=== PATIENT | female | born 1955 | race Caucasian/White ===

== ENCOUNTER 2019-01-12 03:24 | Inpatient (IN) | payer MEDICARE, BC ==
[~2019-01-12] VITALS: Ht 165.1 cm; Wt 80.0 kg
[~2019-01-12 03:24] MED LIST: ALBU18HF INHALATION; ALEN70TA5 PO; BISA10SU55 RC; FAMO20TA18 PO; FOLI-49 PO; GABA100C14 PO; HYDR12.58 PO; LORA10TA3 PO; MAGN400O19 PO; MEMA10TA PO; METO-429 PO; MINE133E23 RC; SYMB80120 INHALATION; TRAZ150T65 PO
[2019-01-12] MEDS ORDERED: SOD CHLORIDE 0.9% 500 ML IV STA (03:30)
[2019-01-12 03:35] VITALS: Ht 165.1 cm; Wt 80.0 kg
[2019-01-12] MEDS ORDERED: SODIUM CHLORIDE 0.9% 1L BAG IV* STA (03:48)
[2019-01-12] MEDS ORDERED: CEFEPIME 2GM/50 ML (PMX) 50 ML IVPB STA (03:48)
[2019-01-12] MEDS ORDERED: VANCOMYCIN 1 GM (PMX) 250 ML IVPB ONE (04:00)
--- NOTE | 2019-01-12 05:42 | ERD ---
ER Documentation Chief Complaint Chief Complaint bib ra from [facility] for sob, more altered than usual HPI Is a 64-year-old brought in from [facility] for shortness of breath and being more altered than normal. Patient is demented at baseline and cannot provide any relevant history. History is per EMS when she long-term transfer sheet. Patient is cooperative upon arrival to the ER but cannot provide any relevant history. ROS All systems reviewed and are negative except as per history of present illness. Medications Home Meds Reported Medications Albuterol Sulfate* (Ventolin HFA*) 18 Gm Hfa.aer.ad, 2 PUFF INHALATION Q4H, #1 INHALER 01/12/19 Trazodone Hcl* (Trazodone Hcl*) 150 Mg Tablet, 150 MG PO QHS, #30 TAB 01/12/19 Budesonide-Formoterol Fumarate* (Symbicort*) 80-4.5 Inha, 2 PUFFS INHALATION BID, #1 EACH 01/12/19 Metoprolol Tartrate* (Lopressor*) 50 Mg Tab, 50 MG PO BID, #60 TAB 01/12/19 Memantine* (Namenda*) 10 Mg Tablet, 10 MG PO DAILY, #30 TAB 01/12/19 Loratadine* (Loratadine*) 10 Mg Tablet, 10 MG PO DAILY, #30 TAB 01/12/19 Hydrochlorothiazide* (Hydrochlorothiazide*) 12.5 Mg Tablet, 12.5 MG PO DAILY, #30 TAB 01/12/19 Gabapentin* (Gabapentin*) 100 Mg Capsule, 100 MG PO TID, #90 CAP 01/12/19 Folic Acid* (Folic Acid*) 1 Mg Tablet, 1 MG PO DAILY, TAB 01/12/19 Famotidine* (Famotidine*) 20 Mg Tablet, 20 MG PO QAM for GERD, #30 TAB 01/12/19 Mineral Oil (Fleet Mineral Oil Enema) 133 Ml Enema, 133 ML RC, ENEMA 01/12/19 Bisacodyl (Dulcolax) 10 Mg Supp.rect, 10 MG RC PRN for CONSTIPATION, SUPP.RECT 01/12/19 Magnesium Hydroxide* (Milk Of Magnesia*) 400 Mg/5 Ml Oral.susp, 30 ML PO DAILY PRN for CONSTIPATION, ML 01/12/19 Alendronate Sodium* (Fosamax*) 70 Mg Tablet, 70 MG PO Q7D for QSATDAY, #4 TAB 01/12/19 Allergies Allergies: Coded Allergies: No Known Allergy (Unverified , 01/12/19) PMhx/Soc History of Surgery: No Anesthesia Reaction: No Hx Neurological Disorder: Yes (idiopathic neuropathy,restless leg syndrome) Hx Respiratory Disorders: Yes (COPD) Hx Cardiac Disorders: Yes (hypo-osmolality,hyponatremia,hypokalemia) Hx Psychiatric Problems: Yes (Alzheimer's,major depressive disorder) Hx Miscellaneous Medical Probl: Yes (GERD,age-related osteoporosis,lack of coordination,muscle weakness,anemia) Smoking Status: Unknown if ever smoked Physical Exam Vitals Vital Signs Date Temp Pulse Resp B/P (MAP) Pulse Ox O2 O2 Flow FiO2 Time Delivery Rate 01/12/19 95 26 155/71 99 Nasal 2.0 05:00 (99) Cannula 01/12/19 88 21 133/66 96 Nasal 2.0 04:30 (88) Cannula 01/12/19 Nasal 2 03:49 Cannula 01/12/19 98.7 92 26 141/69 88 03:35 (93) Physical Exam Const: No acute distress Head: Atraumatic Eyes: Normal Conjunctiva ENT: Normal External Ears, Nose and Mouth. Neck: Full range of motion. No meningismus. Resp: Clear to auscultation bilaterally Cardio: Regular rate and rhythm, no murmurs Abd: Soft, non tender, non distended. Normal bowel sounds Skin: No petechiae or rashes Back: No midline or flank tenderness Ext: No cyanosis, or edema Neur: Awake and alert Psych: Normal Mood and Affect Result Diagram: 01/12/19 0353 01/12/19 0353 Results 24 hrs Laboratory Tests Test 01/12/19 03:48 01/12/19 03:53 01/12/19 04:10 POC Venous Lactate 2.6 mmol/L White Blood Count 7.0 10^3/ul Red Blood Count 3.75 10^6/ul Hemoglobin 11.9 g/dl Hematocrit 36.1 % Mean Corpuscular Volume 96.3 fl Mean Corpuscular Hemoglobin 31.7 pg Mean Corpuscular 33.0 g/dl Hemoglobin Concent Red Cell Distribution Width 11.9 % Platelet Count 290 10^3/UL Mean Platelet Volume 9.7 fl Immature Granulocytes % 1.100 % Neutrophils % 73.9 % Lymphocytes % 14.5 % Monocytes % 9.0 % Eosinophils % 1.1 % Basophils % 0.4 % Nucleated Red Blood Cells % 0.0 /100WBC Immature Granulocytes # 0.080 10^3/ul Neutrophils # 5.2 10^3/ul Lymphocytes # 1.0 10^3/ul Monocytes # 0.6 10^3/ul Eosinophils # 0.1 10^3/ul Basophils # 0.0 10^3/ul Nucleated Red Blood Cells # 0.0 10^3/ul Prothrombin Time 12.2 Sec Prothrombin Time Ratio 1.0 INR International 0.89 Normalized Ratio Activated Partial Thromboplast 26.4 Sec Time Sodium Level 131 mmol/L Potassium Level 3.5 mmol/L Chloride Level 89 mmol/L Carbon Dioxide Level 37 mmol/L Anion Gap 5 Blood Urea Nitrogen 16 mg/dl Creatinine 0.61 mg/dl Est Glomerular Filtrat > 60 mL/min Rate mL/min Glucose Level 154 mg/dl Calcium Level 8.5 mg/dl Total Bilirubin 0.3 mg/dl Direct Bilirubin 0.00 mg/dl Indirect Bilirubin 0.3 mg/dl Aspartate Amino 44 IU/L Transf (AST/SGOT) Alanine 33 IU/L Aminotransferase (ALT/SGPT) Alkaline Phosphatase 76 IU/L Troponin I < 0.012 ng/ml Total Protein 7.3 g/dl Albumin 3.7 g/dl Globulin 3.60 g/dl Albumin/Globulin Ratio 1.02 Salicylates Level < 1.0 mg/dl Acetaminophen Level < 10.0 ug/ml Ethyl Alcohol Level < 10.0 mg/dl Urine Color YELLOW Urine Clarity CLEAR Urine pH 6.0 Urine Specific [place] 1.015 Urine Ketones TRACE mg/dL Urine Nitrite NEGATIVE mg/dL Urine Bilirubin NEGATIVE mg/dL Urine Urobilinogen NEGATIVE mg/dL Urine Leukocyte Esterase NEGATIVE Sanju/ul Urine Hemoglobin NEGATIVE mg/dL Urine Glucose NEGATIVE mg/dL Urine Total Protein NEGATIVE mg/dl Urine Opiates Screen Negative Urine Barbiturates Negative Urine Amphetamines Screen Negative Urine Benzodiazepines Screen Negative Urine Cocaine Screen Negative Urine Cannabinoids Negative Current Medications Medications Dose Sig/Katie Start Time Status Last (Trade) Ordered Route PRN Stop Time Admin Dose Reason Admin Sodium 500 ml @ Q1H STAT 01/12/19 DC 01/12/19 Chloride 500 mls/hr IV 03:30 03:30 01/12/19 04:29 Sodium 2,400 ml BOLUS OVER 2 01/12/19 DC 01/12/19 Chloride HOURS STAT 03:48 04:13 (NS) IV* 01/12/19 03:52 Cefepime HCl 50 ml @ ONCE STAT 01/12/19 DC 01/12/19 100 mls/hr IVPB 03:48 04:13 01/12/19 04:17 Vancomycin 250 ml @ ONCE ONCE 01/12/19 01/12/19 HCl 125 mls/hr IVPB 04:00 04:39 01/12/19 05:59 Ondansetron 4 mg ER BRIDGE 01/12/19 HCl (Zofran PRN IV 06:00 01/13/19 Inj) NAUSEA/VOMITI 05:59 NG 650 mg ER BRIDGE 01/12/19 Acetaminophen PRN PO 06:00 01/13/19 (Tylenol .MILD PAIN 05:59 Tab) 1-3 OR TEMP Procedures/MDM EKG: Rate/Rhythm: [Normal Sinus Rhythm] QRS, ST, T-waves: [No changes consistent w/ acute ischemia] Impression: [No evidence of ischemia or arrhythmia] Chest X-ray 1V Interpreted by me: Soft Tissue: No acute abnormalities Bones: No acute abnormalities Mediastinum/Cardiac Silhouette/Lungs: [No acute abnormalities] Medical decision makin-year-old female comes in with shortness of breath and more altered than normal. She has no evidence of infection, however lactic acid is 2.6. I doubt sepsis, this is likely secondary to chronic respiratory acidosis. Patient has been started on antibiotics for coverage and has been given 30/kg fluid bolus, however again I doubt sepsis. Patient will be admitted for altered mental status and possible sepsis to be ruled out along with chronic respiratory failure to the hospitalist. Departure Diagnosis: Primary Impression: Altered level of consciousness Condition: Serious TOBY GONZALES Jan 12, 2019 05:42
[2019-01-12] MEDS ORDERED: ACETAMINOPHEN 325 MG TAB PO PRN (06:00)
[2019-01-12] MEDS ORDERED: ONDANSETRON 4 MG INJ IV PRN ×2 (06:00→07:00)
[2019-01-12] MEDS ORDERED: ACETAMINOPHEN 650 MG SUPP PR PRN (07:00)
[2019-01-12] MEDS ORDERED: NACL 0.9% 3 ML SYG IV SCH (07:00)
--- NOTE | 2019-01-12 08:07 | HP ---
Date/Time of Note Date/Time of Note DATE: 01/12/19 TIME: 07:59 Assessment/Plan VTE Prophylaxis SCD applied (from Nsg): Yes Pharmacological prophylaxis: heparin Lines/Catheters IV Catheter Type (from Nrsg): Saline Lock Assessment/Plan Assessment/Plan 1. Acute on chronic encephalopathy -Unknown baseline. She is oriented to location and year. Does not appear to be agitated -Head CT negative for acute findings -Obtain MRI of the brain -Infectious work-up -Given history of COPD and also hypoxic presentation, obtain ABG to evaluate for possible hypercapnia as a cause of worsening mentation 2. Hypoxia, likely secondary to COPD exacerbation -Supplemental oxygen, bronchodilators and steroid -Check ABG 3. Alzheimer's dementia: Supportive care 4. Hyponatremia: -Check osmolality, urine sodium Result Diagram: 01/12/19 0353 01/12/19 0353 Results 24hrs Laboratory Tests Test 01/12/19 03:48 01/12/19 03:53 01/12/19 04:10 01/12/19 05:16 POC Venous Lactate 2.6 *H White Blood Count 7.0 Red Blood Count 3.75 L Hemoglobin 11.9 L Hematocrit 36.1 L Mean Corpuscular 96.3 Volume Mean Corpuscular 31.7 Hemoglobin Mean Corpuscular 33.0 Hemoglobin Concent Red Cell 11.9 Distribution Width Platelet Count 290 Mean Platelet Volume 9.7 Immature 1.100 H Granulocytes % Neutrophils % 73.9 Lymphocytes % 14.5 L Monocytes % 9.0 Eosinophils % 1.1 Basophils % 0.4 Nucleated Red Blood 0.0 Cells % Immature 0.080 H Granulocytes # Neutrophils # 5.2 Lymphocytes # 1.0 Monocytes # 0.6 Eosinophils # 0.1 Basophils # 0.0 Nucleated Red Blood 0.0 Cells # Prothrombin Time 12.2 Prothrombin Time 1.0 Ratio INR International 0.89 Normalized Ratio Activated 26.4 Partial Thromboplast Time Sodium Level 131 L Potassium Level 3.5 Chloride Level 89 L Carbon Dioxide Level 37 H Anion Gap 5 Blood Urea Nitrogen 16 Creatinine 0.61 Est Glomerular > 60 Filtrat Rate mL/min Glucose Level 154 Calcium Level 8.5 Total Bilirubin 0.3 Direct Bilirubin 0.00 Indirect Bilirubin 0.3 Aspartate Amino 44 Transf (AST/SGOT) Alanine 33 Aminotransferase (AL T/SGPT) Alkaline Phosphatase 76 Troponin I < 0.012 Total Protein 7.3 Albumin 3.7 Globulin 3.60 H Albumin/Globulin 1.02 Ratio Salicylates Level < 1.0 L Acetaminophen Level < 10.0 L Ethyl Alcohol Level < 10.0 H Urine Color YELLOW Urine Clarity CLEAR Urine pH 6.0 Urine Specific 1.015 [place] Urine Ketones TRACE A Urine Nitrite NEGATIVE Urine Bilirubin NEGATIVE Urine Urobilinogen NEGATIVE Urine Leukocyte NEGATIVE Esterase Urine Hemoglobin NEGATIVE Urine Glucose NEGATIVE Urine Total Protein NEGATIVE Urine Opiates Screen Negative Urine Barbiturates Negative Urine Amphetamines Negative Screen Urine Negative Benzodiazepines Screen Urine Cocaine Screen Negative Urine Cannabinoids Negative Lactic Acid Level 1.4 HPI/ROS Admit Date/Time Admit Date/Time Hx of Present Illness Patient is a 63-year-old female with a history of COPD, Alzheimer's disease, dementia, depression, hyponatremia, idiopathic neuropathy and restless leg syndrome who was brought to the ER for altered mentation. Patient does have a history of dementia and seems like this is acute on chronic. Patient is oriented to location and year. She did not know why she was brought to the hospital however. She said that she usually uses a walker to ambulate. Currently, she does not really have any complain except back pain due to lying on her back for long time. When presented to the ER, she was hypoxic with oxygen saturation of 88%. Head CT without acute findings. Sodium 131, initial lactic acid 2.6. Chest x-ray and UA nondiagnostic. PMH/Family/Social Past Medical History Past Surgical Hx: other (see hpi) Family History Significant Family History: no pertinent family hx Social History Alcohol Use: other Smoking Status: Unknown if ever smoked Drug Use: other Exam Exam Constitutional: no acute distress Head: normocephalic, atraumatic Eyes: EOMI, PERRL Respiratory: clear to auscultation, normal air movement Cardiovascular: no skipped beat Gastrointestinal: soft, non-tender Extremities: palpable pulse Medications Current Medications Ondansetron HCl (Zofran Inj) 4 mg ER BRIDGE PRN IV NAUSEA/VOMITING; Start 01/12/19 at 06:00; Stop 01/13/19 at 05:59 Acetaminophen (Tylenol Tab) 650 mg ER BRIDGE PRN PO .MILD PAIN 1-3 OR TEMP; Start 01/12/19 at 06:00; Stop 01/13/19 at 05:59 Dextrose/Sodium Chloride 1,000 ml @ 100 mls/hr Q10H IV ; Start 01/12/19 at 06:58 IV Flush (NS 3 ml) 3 ml PER PROTOCOL IV ; Start 01/12/19 at 07:00 Ondansetron HCl (Zofran Inj) 4 mg Q6H PRN IV NAUSEA/VOMITING; Start 01/12/19 at 07:00 Acetaminophen (Tylenol Supp) [address] .PAIN 1-3 OR TEMP; Start 01/12/19 at 07:00 Famotidine (Pepcid Iv) 20 mg Q12 IV ; Start 01/12/19 at 09:00 Heparin Sodium (Porcine) (Heparin (5000 Units/1ml)) 5,000 unit Q12 SC ; Start 01/12/19 at 09:00 Albuterol/ Ipratropium (Duoneb) 3 ml Q2H RESP THERAPY PRN HHN SHORTNESS OF BREATH; Start 01/12/19 at 07:00 Coded Allergies: No Known Allergy (Unverified , 01/12/19) Social History Smoking Status: Unknown if ever smoked Exam/Review of Systems Vital Signs Vitals Vital Signs Date Temp Pulse Resp B/P (MAP) Pulse Ox O2 O2 Flow FiO2 Time Delivery Rate 01/12/19 98.3 72 14 133/62 99 Nasal 2.0 07:40 (85) Cannula Intake and Output 01/11/19 01/11/19 01/12/19 1515:00 23:00 07:00 IntakeIntake Total 100 ml BalanceBalance 100 ml TOBY SHAFFER MD Jan 12, 2019 08:07
[2019-01-12] MEDS: DEXTROSE 5%-0.45% NACL 1,000 ML IV SCH ×2 (09:33→16:58)
[2019-01-12] MEDS: FAMOTIDINE 20 MG INJ IV SCH ×2 (09:33→21:06)
[2019-01-12] MEDS: HEPARIN 5,000 UNIT/1 ML VIAL SC SCH ×2 (09:40→21:08)
[2019-01-12 11:16] VITALS: BP 155/72; PULSE 91; RESP 19
[2019-01-12 11:29] VITALS: BP 162/76; PULSE 90; RESP 19
--- NOTE | 2019-01-12 13:13 | PN ---
Date/Time of Note Date/Time of Note DATE: 01/12/19 TIME: 13:02 Assessment/Plan VTE Prophylaxis Pharmacological prophylaxis: heparin Lines/Catheters IV Catheter Type (from Nrsg): Peripheral IV Assessment/Plan Assessment/Plan 1. COPD exacerbation, neb, rocephin, soluMedrol 2. Respiratory failure, O2 3. Acute on chronic encephalopathy, COPD related 4. Alzheimer's dementia: Supportive care 5. Hyponatremia, dehydration, IVF 6. HTN, norvasc 7. Tobacco use, 4-5 cig per day, advise to quit 8. DVT prophylaxis: heparin Result Diagram: 01/12/19 0353 01/12/19 0353 Results 24hrs Laboratory Tests Test 01/12/19 03:48 01/12/19 03:53 01/12/19 04:10 01/12/19 05:16 POC Venous 2.6 *H Lactate White Blood Count 7.0 Red Blood Count 3.75 L Hemoglobin 11.9 L Hematocrit 36.1 L Mean Corpuscular 96.3 Volume Mean Corpuscular 31.7 Hemoglobin Mean Corpuscular 33.0 Hemoglobin Concen t Red Cell 11.9 Distribution Width Platelet Count 290 Mean Platelet 9.7 Volume Immature 1.100 H Granulocytes % Neutrophils % 73.9 Lymphocytes % 14.5 L Monocytes % 9.0 Eosinophils % 1.1 Basophils % 0.4 Nucleated Red 0.0 Blood Cells % Immature 0.080 H Granulocytes # Neutrophils # 5.2 Lymphocytes # 1.0 Monocytes # 0.6 Eosinophils # 0.1 Basophils # 0.0 Nucleated Red 0.0 Blood Cells # Prothrombin Time 12.2 Prothrombin Time 1.0 Ratio INR International 0.89 Normalized Ratio Activated 26.4 Partial Thrombopl ast Time Sodium Level 131 L Potassium Level 3.5 Chloride Level 89 L Carbon Dioxide 37 H Level Anion Gap 5 Blood Urea 16 Nitrogen Creatinine 0.61 Est Glomerular > 60 Filtrat Rate mL/min Glucose Level 154 Calcium Level 8.5 Total Bilirubin 0.3 Direct Bilirubin 0.00 Indirect 0.3 Bilirubin Aspartate Amino 44 Transf (AST/SGOT) Alanine 33 Aminotransferase (ALT/SGPT) Alkaline 76 Phosphatase Troponin I < 0.012 Total Protein 7.3 Albumin 3.7 Globulin 3.60 H Albumin/Globulin 1.02 Ratio Salicylates Level < 1.0 L Acetaminophen < 10.0 L Level Ethyl Alcohol < 10.0 H Level Urine Color YELLOW Urine Clarity CLEAR Urine pH 6.0 Urine Specific 1.015 [place] Urine Ketones TRACE A Urine Nitrite NEGATIVE Urine Bilirubin NEGATIVE Urine NEGATIVE Urobilinogen Urine Leukocyte NEGATIVE Esterase Urine Hemoglobin NEGATIVE Urine Random 121 H Sodium Urine Glucose NEGATIVE Urine Total NEGATIVE Protein Urine Opiates Negative Screen Urine Negative Barbiturates Urine Negative Amphetamines Screen Urine Negative Benzodiazepines Screen Urine Cocaine Negative Screen Urine Negative Cannabinoids Lactic Acid Level 1.4 Test 01/12/19 07:27 01/12/19 08:54 Lactic Acid Level 1.3 Blood Gas Blood arterial Specimen Source Arterial Blood 01/12/2019 9:10:2 Date Drawn 5 AM Arterial Blood pH 7.417 (Temp corrected) Arterial Blood 49.5 H pCO2 (Temp correct) Arterial Blood 74.4 L pO2 (Temp corrected) Arterial Blood 31.2 H HCO3 Arterial Blood 5.6 H Base Excess Arterial Blood 94.4 L Oxygen Saturation Mario Test ACCEPTAB Arterial Blood Right Radial Gas Puncture Site Arterial 0.1 Blood Carboxyhemo globin Arterial Blood 0.2 Methemoglobin Blood Gas A-a O2 59.6 H Differential Oxyhemoglobin 94.1 Percent Blood Gas 37.0 Temperature Blood Gas NASAL CANNULA Modality FiO2 27.0 Blood Gas TM Notified Whom Blood Gas 01/12/2019 9:24:0 Notified Time 5 AM Subjective 24 Hr Interval Summary Free Text/Dictation alert, answering questions moderate respiratory distress Exam/Review of Systems Exam Vitals Vital Signs Date Temp Pulse Resp B/P (MAP) Pulse Ox O2 O2 Flow FiO2 Time Delivery Rate 01/12/19 98.1 90 19 162/76 99 11:29 (104) 01/12/19 Nasal 2.0 09:15 Cannula Intake and Output 01/11/19 01/11/19 01/12/19 1515:00 23:00 07:00 IntakeIntake Total 100 ml BalanceBalance 100 ml Constitutional: alert, oriented, well developed Head: normocephalic, atraumatic Eyes: nl conjunctiva, EOMI, nl lids, PERRL ENMT: nl external ears & nose, nl lips & teeth, nl nasal mucosa & septum Neck: supple, non-tender Respiratory: diminished breath sounds Cardiovascular: regular rate and rhythm, nl pulses; No bruits, No diastolic murmur, No edema, No gallop, No irregular rhythm, No jugular venous distention (JVD), No murmurs/extra sounds, No rub, No systolic murmur, No S3, No S4, No other Gastrointestinal: soft, nl liver, spleen, non-tender Musculoskeletal: nl extremities to inspection Extremities: normal pulses; No calf tenderness, No cyanosis, No clubbing, No edema, No pitting pedal edema, No palpable cord, No tenderness, No other 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, nl mental status, nl speech Results Results 24hrs Laboratory Tests Test 01/12/19 03:48 01/12/19 03:53 01/12/19 04:10 01/12/19 05:16 POC Venous 2.6 *H Lactate White Blood Count 7.0 Red Blood Count 3.75 L Hemoglobin 11.9 L Hematocrit 36.1 L Mean Corpuscular 96.3 Volume Mean Corpuscular 31.7 Hemoglobin Mean Corpuscular 33.0 Hemoglobin Concen t Red Cell 11.9 Distribution Width Platelet Count 290 Mean Platelet 9.7 Volume Immature 1.100 H Granulocytes % Neutrophils % 73.9 Lymphocytes % 14.5 L Monocytes % 9.0 Eosinophils % 1.1 Basophils % 0.4 Nucleated Red 0.0 Blood Cells % Immature 0.080 H Granulocytes # Neutrophils # 5.2 Lymphocytes # 1.0 Monocytes # 0.6 Eosinophils # 0.1 Basophils # 0.0 Nucleated Red 0.0 Blood Cells # Prothrombin Time 12.2 Prothrombin Time 1.0 Ratio INR International 0.89 Normalized Ratio Activated 26.4 Partial Thrombopl ast Time Sodium Level 131 L Potassium Level 3.5 Chloride Level 89 L Carbon Dioxide 37 H Level Anion Gap 5 Blood Urea 16 Nitrogen Creatinine 0.61 Est Glomerular > 60 Filtrat Rate mL/min Glucose Level 154 Calcium Level 8.5 Total Bilirubin 0.3 Direct Bilirubin 0.00 Indirect 0.3 Bilirubin Aspartate Amino 44 Transf (AST/SGOT) Alanine 33 Aminotransferase (ALT/SGPT) Alkaline 76 Phosphatase Troponin I < 0.012 Total Protein 7.3 Albumin 3.7 Globulin 3.60 H Albumin/Globulin 1.02 Ratio Salicylates Level < 1.0 L Acetaminophen < 10.0 L Level Ethyl Alcohol < 10.0 H Level Urine Color YELLOW Urine Clarity CLEAR Urine pH 6.0 Urine Specific 1.015 [place] Urine Ketones TRACE A Urine Nitrite NEGATIVE Urine Bilirubin NEGATIVE Urine NEGATIVE Urobilinogen Urine Leukocyte NEGATIVE Esterase Urine Hemoglobin NEGATIVE Urine Random 121 H Sodium Urine Glucose NEGATIVE Urine Total NEGATIVE Protein Urine Opiates Negative Screen Urine Negative Barbiturates Urine Negative Amphetamines Screen Urine Negative Benzodiazepines Screen Urine Cocaine Negative Screen Urine Negative Cannabinoids Lactic Acid Level 1.4 Test 01/12/19 07:27 01/12/19 08:54 Lactic Acid Level 1.3 Blood Gas Blood arterial Specimen Source Arterial Blood 01/12/2019 9:10:2 Date Drawn 5 AM Arterial Blood pH 7.417 (Temp corrected) Arterial Blood 49.5 H pCO2 (Temp correct) Arterial Blood 74.4 L pO2 (Temp corrected) Arterial Blood 31.2 H HCO3 Arterial Blood 5.6 H Base Excess Arterial Blood 94.4 L Oxygen Saturation Mario Test ACCEPTAB Arterial Blood Right Radial Gas Puncture Site Arterial 0.1 Blood Carboxyhemo globin Arterial Blood 0.2 Methemoglobin Blood Gas A-a O2 59.6 H Differential Oxyhemoglobin 94.1 Percent Blood Gas 37.0 Temperature Blood Gas NASAL CANNULA Modality FiO2 27.0 Blood Gas TM Notified Whom Blood Gas 01/12/2019 9:24:0 Notified Time 5 AM Medications Medication Current Medications Ondansetron HCl (Zofran Inj) 4 mg ER BRIDGE PRN IV NAUSEA/VOMITING; Start 01/12/19 at 06:00; Stop 01/13/19 at 05:59 Acetaminophen (Tylenol Tab) 650 mg ER BRIDGE PRN PO .MILD PAIN 1-3 OR TEMP; Start 01/12/19 at 06:00; Stop 01/13/19 at 05:59 Dextrose/Sodium Chloride 1,000 ml @ 100 mls/hr Q10H IV Last administered on 01/12/19at 09:33; Admin Dose 100 MLS/HR; Start 01/12/19 at 06:58 IV Flush (NS 3 ml) 3 ml PER PROTOCOL IV ; Start 01/12/19 at 07:00 Ondansetron HCl (Zofran Inj) 4 mg Q6H PRN IV NAUSEA/VOMITING; Start 01/12/19 at 07:00 Acetaminophen (Tylenol Supp) 650 mg Q6H PRN [place] .PAIN 1-3 OR TEMP; Start 01/12/19 at 07:00 Famotidine (Pepcid Iv) 20 mg Q12 IV Last administered on 01/12/19at 09:33; Admin Dose 20 MG; Start 01/12/19 at 09:00 Heparin Sodium (Porcine) (Heparin (5000 Units/1ml)) 5,000 unit Q12 SC Last administered on 01/12/19at 09:40; Admin Dose 5,000 UNIT; Start 01/12/19 at 09:00 Albuterol/ Ipratropium (Duoneb) 3 ml Q2H RESP THERAPY PRN HHN SHORTNESS OF BREATH; Start 01/12/19 at 07:00 TOPHER COLON MD Jan 12, 2019 13:13
[2019-01-12] MEDS: HYDROCODONE/APAP (5/325) TAB GTB PRN (13:39)
[2019-01-12] MEDS: CEFTRIAXONE 1 GM/50 ML (PMX) 50 ML IVPB SCH (13:39)
[2019-01-12] MEDS: METHYLPREDNISOLONE 40 MG INJ IV SCH ×2 (13:39→21:06)
[2019-01-12] MEDS: AMLODIPINE 5 MG TAB PO SCH (13:46)
[2019-01-12 15:43] VITALS: BP 161/76; PULSE 87; RESP 19
[2019-01-12 19:49] VITALS: BP 149/76; PULSE 97; RESP 18
[2019-01-12] MEDS: NYSTATIN 30 GM POWDER BTL TOP SCH (21:10)
[2019-01-12 23:49] VITALS: BP 135/65; PULSE 92; RESP 18
[2019-01-13] MEDS: DEXTROSE 5%-0.45% NACL 1,000 ML IV SCH ×3 (03:03→21:59)
[2019-01-13 03:56] VITALS: BP 123/57; PULSE 90; RESP 18
[2019-01-13] MEDS: METHYLPREDNISOLONE 40 MG INJ IV SCH ×3 (06:31→21:22)
[2019-01-13 07:36] VITALS: BP 159/80; PULSE 98; RESP 16
[2019-01-13] MEDS: AMLODIPINE 5 MG TAB PO SCH (08:13)
[2019-01-13] MEDS: FAMOTIDINE 20 MG INJ IV SCH ×2 (08:13→21:27)
[2019-01-13] MEDS: HYDROCODONE/APAP (5/325) TAB GTB PRN ×3 (08:13→19:02)
[2019-01-13] MEDS: HEPARIN 5,000 UNIT/1 ML VIAL SC SCH ×2 (08:19→21:54)
[2019-01-13] MEDS: NYSTATIN 30 GM POWDER BTL TOP SCH ×2 (08:21→21:30)
[2019-01-13 11:06] VITALS: BP 155/89; PULSE 66; RESP 22
[2019-01-13] MEDS: CEFTRIAXONE 1 GM/50 ML (PMX) 50 ML IVPB SCH (14:07)
[2019-01-13 15:42] VITALS: BP 144/68; PULSE 89; RESP 18
--- NOTE | 2019-01-13 17:43 | PN ---
Date/Time of Note Date/Time of Note DATE: 01/13/19 TIME: 17:41 Assessment/Plan VTE Prophylaxis Risk score (from Ns)>0 risk: 3 SCD applied (from Ns): Yes Pharmacological prophylaxis: heparin Lines/Catheters IV Catheter Type (from Nrs): Peripheral IV Assessment/Plan Assessment/Plan 1. COPD exacerbation, neb, rocephin, decrease soluMedrol 2. Respiratory failure, O2 3. Acute on chronic encephalopathy, COPD related, improved 4. Alzheimer's dementia: Supportive care 5. Hyponatremia, dehydration, resolved 6. HTN, norvasc 7. Tobacco use, 4-5 cig per day, advise to quit 8. DVT prophylaxis: heparin Result Diagram: 01/13/1958 01/13/19 0558 Results 24hrs Laboratory Tests Test 01/13/19 05:58 White Blood Count 8.3 Red Blood Count 4.10 L Hemoglobin 12.6 Hematocrit 40.0 Mean Corpuscular Volume 97.6 Mean Corpuscular Hemoglobin 30.7 Mean Corpuscular Hemoglobin Concent 31.5 L Red Cell Distribution Width 12.2 Platelet Count 338 Mean Platelet Volume 10.2 Immature Granulocytes % 0.400 Neutrophils % 87.6 H Lymphocytes % 8.2 L Monocytes % 3.8 Eosinophils % 0.0 Basophils % 0.0 Nucleated Red Blood Cells % 0.0 Immature Granulocytes # 0.030 Neutrophils # 7.3 Lymphocytes # 0.7 L Monocytes # 0.3 Eosinophils # 0.0 Basophils # 0.0 Nucleated Red Blood Cells # 0.0 Sodium Level 141 Potassium Level 4.2 Chloride Level 99 # Carbon Dioxide Level 36 H Anion Gap 6 Blood Urea Nitrogen 7 # Creatinine 0.51 Est Glomerular Filtrat Rate mL/min > 60 Glucose Level 125 Hemoglobin A1c 5.5 Calcium Level 9.0 Magnesium Level 2.2 Total Bilirubin 0.3 Direct Bilirubin 0.00 Indirect Bilirubin 0.3 Aspartate Amino Transf (AST/SGOT) 38 Alanine Aminotransferase (ALT/SGPT) 33 Alkaline Phosphatase 95 Total Protein 7.7 Albumin 3.8 Globulin 3.90 H Albumin/Globulin Ratio 0.97 Triglycerides Level 80 Cholesterol Level 186 LDL Cholesterol, Calculated 125 HDL Cholesterol 45 Cholesterol/HDL Ratio 4.1 Thyroid Stimulating Hormone (TSH) 0.494 Subjective 24 Hr Interval Summary Free Text/Dictation less shortness of breath Exam/Review of Systems Exam Vitals Vital Signs Date Temp Pulse Resp B/P (MAP) Pulse Ox O2 O2 Flow FiO2 Time Delivery Rate 01/13/19 98.5 89 18 144/68 97 Nasal 15:42 (93) Cannula 01/13/19 2.0 08:00 Intake and Output 01/12/19 01/12/19 01/13/19 1515:00 23:00 07:00 IntakeIntake Total 240 ml OutputOutput Total 1 ml BalanceBalance 239 ml Constitutional: alert, oriented, well developed Psych: no complaints, nl mood/affect Head: normocephalic, atraumatic Eyes: nl conjunctiva, EOMI, nl lids ENMT: nl external ears & nose, nl lips & teeth, nl nasal mucosa & septum Neck: supple, non-tender Respiratory: clear to auscultation, normal air movement; No congested cough, No crackles/rales, No diminished breath sounds, No intercostal retraction, No labored breathing, No respirations, No tactile fremitus, No wheezing, No other Cardiovascular: regular rate and rhythm, nl pulses; No bruits, No diastolic murmur, No edema, No gallop, No irregular rhythm, No jugular venous distention (JVD), No murmurs/extra sounds, No rub, No systolic murmur, No S3, No S4, No other Gastrointestinal: soft, nl liver, spleen, non-tender Musculoskeletal: nl extremities to inspection Extremities: normal pulses; No calf tenderness, No cyanosis, No clubbing, No edema, No pitting pedal edema, No palpable cord, No tenderness, No other 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, nl mental status, nl speech, nl strength Results Results 24hrs Laboratory Tests Test 01/13/19 05:58 White Blood Count 8.3 Red Blood Count 4.10 L Hemoglobin 12.6 Hematocrit 40.0 Mean Corpuscular Volume 97.6 Mean Corpuscular Hemoglobin 30.7 Mean Corpuscular Hemoglobin Concent 31.5 L Red Cell Distribution Width 12.2 Platelet Count 338 Mean Platelet Volume 10.2 Immature Granulocytes % 0.400 Neutrophils % 87.6 H Lymphocytes % 8.2 L Monocytes % 3.8 Eosinophils % 0.0 Basophils % 0.0 Nucleated Red Blood Cells % 0.0 Immature Granulocytes # 0.030 Neutrophils # 7.3 Lymphocytes # 0.7 L Monocytes # 0.3 Eosinophils # 0.0 Basophils # 0.0 Nucleated Red Blood Cells # 0.0 Sodium Level 141 Potassium Level 4.2 Chloride Level 99 # Carbon Dioxide Level 36 H Anion Gap 6 Blood Urea Nitrogen 7 # Creatinine 0.51 Est Glomerular Filtrat Rate mL/min > 60 Glucose Level 125 Hemoglobin A1c 5.5 Calcium Level 9.0 Magnesium Level 2.2 Total Bilirubin 0.3 Direct Bilirubin 0.00 Indirect Bilirubin 0.3 Aspartate Amino Transf (AST/SGOT) 38 Alanine Aminotransferase (ALT/SGPT) 33 Alkaline Phosphatase 95 Total Protein 7.7 Albumin 3.8 Globulin 3.90 H Albumin/Globulin Ratio 0.97 Triglycerides Level 80 Cholesterol Level 186 LDL Cholesterol, Calculated 125 HDL Cholesterol 45 Cholesterol/HDL Ratio 4.1 Thyroid Stimulating Hormone (TSH) 0.494 Medications Medication Current Medications Dextrose/Sodium Chloride 1,000 ml @ 100 mls/hr Q10H IV Last administered on 01/13/19at 14:08; Admin Dose 100 MLS/HR; Start 01/12/19 at 06:58 IV Flush (NS 3 ml) 3 ml PER PROTOCOL IV ; Start 01/12/19 at 07:00 Ondansetron HCl (Zofran Inj) 4 mg Q6H PRN IV NAUSEA/VOMITING; Start 01/12/19 at 07:00 Acetaminophen (Tylenol Supp) 650 mg Q6H PRN [place] .PAIN 1-3 OR TEMP; Start 01/12/19 at 07:00 Famotidine (Pepcid Iv) 20 mg Q12 IV Last administered on 01/13/19at 08:13; Admin Dose 20 MG; Start 01/12/19 at 09:00 Heparin Sodium (Porcine) (Heparin (5000 Units/1ml)) 5,000 unit Q12 SC Last administered on 01/13/19at 08:19; Admin Dose 5,000 UNIT; Start 01/12/19 at 09:00 Albuterol/ Ipratropium (Duoneb) 3 ml Q2H RESP THERAPY PRN HHN SHORTNESS OF BREATH; Start 01/12/19 at 07:00 Ceftriaxone Sodium 50 ml @ 100 mls/hr Q24H IVPB Last administered on 01/13/19at 14:07; Admin Dose 100 MLS/HR; Start 01/12/19 at 13:30 Methylprednisolone Sodium Succinate (Solu-Medrol) 40 mg Q8 IV Last administered on 01/13/19 14:07; Admin Dose 40 MG; Start 01/12/19 at 14:00 Amlodipine Besylate (Norvasc) 5 mg DAILY PO Last administered on 01/13/19 08:13; Admin Dose 5 MG; Start 01/12/19 at 13:30 Acetaminophen/ Hydrocodone Bitart ([place] (5/325)) 1 tab Q4H PRN GTB MODERATE PAIN LEVEL 4-6 Last administered on 01/13/19 12:47; Admin Dose 1 TAB; Start 01/12/19 at 13:30 Nystatin (Nystatin Powder) 1 applic BID TOP Last administered on 01/13/19 08:21; Admin Dose 1 APPLIC; Start 01/12/19 at 21:00 TOPHER COLON MD Jan 13, 2019 17:43
[2019-01-13 20:00] VITALS: BP 145/72; PULSE 90; RESP 19
[2019-01-14 00:25] VITALS: BP 166/76; PULSE 96; RESP 20
[2019-01-14] MEDS: DEXTROSE 5%-0.45% NACL 1,000 ML IV SCH ×4 (03:47→18:58)
[2019-01-14 04:57] VITALS: BP 180/86; PULSE 100; RESP 20
[2019-01-14] MEDS: METHYLPREDNISOLONE 40 MG INJ IV SCH ×3 (06:07→21:11)
[2019-01-14 07:11] VITALS: BP 160/78; PULSE 88; RESP 18
[2019-01-14] MEDS: HYDROCODONE/APAP (5/325) TAB GTB PRN ×2 (08:17→17:52)
[2019-01-14] MEDS: FAMOTIDINE 20 MG INJ IV SCH ×2 (08:18→20:45)
[2019-01-14] MEDS: NYSTATIN 30 GM POWDER BTL TOP SCH ×2 (08:18→20:42)
[2019-01-14] MEDS: AMLODIPINE 5 MG TAB PO SCH (08:18)
[2019-01-14] MEDS: HEPARIN 5,000 UNIT/1 ML VIAL SC SCH ×2 (08:18→20:45)
[2019-01-14 11:16] VITALS: BP 155/87; PULSE 98; RESP 18
[2019-01-14] MEDS: CEFTRIAXONE 1 GM/50 ML (PMX) 50 ML IVPB SCH (12:50)
--- NOTE | 2019-01-14 14:08 | PN ---
Date/Time of Note Date/Time of Note DATE: 01/14/19 TIME: 14:06 Assessment/Plan VTE Prophylaxis Risk score (from Ns)>0 risk: 4 SCD applied (from Ns): Yes Pharmacological prophylaxis: heparin Lines/Catheters IV Catheter Type (from [facility]): Peripheral IV Urinary Cath still in place: No Assessment/Plan Assessment/Plan 1. COPD exacerbation, neb, rocephin, decrease soluMedrol further 2. Respiratory failure, O2 3. Acute on chronic encephalopathy, COPD related, improved 4. Alzheimer's dementia: Supportive care 5. Hyponatremia, dehydration, resolved 6. HTN, increase norvasc 7. Tobacco use, 4-5 cig per day, advise to quit 8. DVT prophylaxis: heparin Result Diagram: 01/14/1951 01/14/19 0551 Results 24hrs Laboratory Tests Test 01/14/19 05:51 White Blood Count 9.9 Red Blood Count 3.95 L Hemoglobin 12.1 Hematocrit 38.7 Mean Corpuscular Volume 98.0 Mean Corpuscular Hemoglobin 30.6 Mean Corpuscular Hemoglobin Concent 31.3 L Red Cell Distribution Width 12.6 Platelet Count 355 Mean Platelet Volume 9.7 Immature Granulocytes % 0.500 H Neutrophils % 87.9 H Lymphocytes % 7.4 L Monocytes % 4.2 Eosinophils % 0.0 Basophils % 0.0 Nucleated Red Blood Cells % 0.0 Immature Granulocytes # 0.050 H Neutrophils # 8.7 H Lymphocytes # 0.7 L Monocytes # 0.4 Eosinophils # 0.0 Basophils # 0.0 Nucleated Red Blood Cells # 0.0 Sodium Level 140 Potassium Level 4.0 Chloride Level 98 Carbon Dioxide Level 39 H Anion Gap 3 L Blood Urea Nitrogen 9 Creatinine 0.53 Est Glomerular Filtrat Rate mL/min > 60 Glucose Level 131 Calcium Level 9.2 Subjective 24 Hr Interval Summary Free Text/Dictation still has shortness of breath but less Exam/Review of Systems Exam Vitals Vital Signs Date Temp Pulse Resp B/P (MAP) Pulse Ox O2 O2 Flow FiO2 Time Delivery Rate 01/14/19 98.3 98 18 155/87 97 Nasal 11:16 (109) Cannula 01/14/19 2.0 09:03 Intake and Output 01/13/19 01/13/19 01/14/19 1515:00 23:00 07:00 IntakeIntake Total 400 ml 300 ml 250 ml OutputOutput Total 5 ml BalanceBalance 400 ml 300 ml 245 ml Constitutional: alert, oriented, well developed Head: normocephalic, atraumatic Eyes: nl conjunctiva, EOMI, nl lids, PERRL ENMT: nl external ears & nose, nl lips & teeth, nl nasal mucosa & septum, muc [place] pink and moist Neck: supple, non-tender Respiratory: diminished breath sounds Cardiovascular: regular rate and rhythm, nl pulses; No bruits, No diastolic murmur, No edema, No gallop, No irregular rhythm, No jugular venous distention (JVD), No murmurs/extra sounds, No rub, No systolic murmur, No S3, No S4, No other Gastrointestinal: soft, nl liver, spleen, non-tender Musculoskeletal: nl extremities to inspection Extremities: normal pulses; No calf tenderness, No cyanosis, No clubbing, No edema, No pitting pedal edema, No palpable cord, No tenderness, No other 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, nl mental status, nl speech Results Results 24hrs Laboratory Tests Test 01/14/19 05:51 White Blood Count 9.9 Red Blood Count 3.95 L Hemoglobin 12.1 Hematocrit 38.7 Mean Corpuscular Volume 98.0 Mean Corpuscular Hemoglobin 30.6 Mean Corpuscular Hemoglobin Concent 31.3 L Red Cell Distribution Width 12.6 Platelet Count 355 Mean Platelet Volume 9.7 Immature Granulocytes % 0.500 H Neutrophils % 87.9 H Lymphocytes % 7.4 L Monocytes % 4.2 Eosinophils % 0.0 Basophils % 0.0 Nucleated Red Blood Cells % 0.0 Immature Granulocytes # 0.050 H Neutrophils # 8.7 H Lymphocytes # 0.7 L Monocytes # 0.4 Eosinophils # 0.0 Basophils # 0.0 Nucleated Red Blood Cells # 0.0 Sodium Level 140 Potassium Level 4.0 Chloride Level 98 Carbon Dioxide Level 39 H Anion Gap 3 L Blood Urea Nitrogen 9 Creatinine 0.53 Est Glomerular Filtrat Rate mL/min > 60 Glucose Level 131 Calcium Level 9.2 Medications Medication Current Medications Dextrose/Sodium Chloride 1,000 ml @ 100 mls/hr Q10H IV Last administered on 01/14/19at 03:47; Admin Dose 100 MLS/HR; Start 01/12/19 at 06:58 IV Flush (NS 3 ml) 3 ml PER PROTOCOL IV ; Start 01/12/19 at 07:00 Ondansetron HCl (Zofran Inj) 4 mg Q6H PRN IV NAUSEA/VOMITING; Start 01/12/19 at 07:00 Acetaminophen (Tylenol Supp) 650 mg Q6H PRN [place] .PAIN 1-3 OR TEMP; Start 01/12/19 at 07:00 Famotidine (Pepcid Iv) 20 mg Q12 IV Last administered on 01/14/19 08:18; Admin Dose 20 MG; Start 01/12/19 at 09:00 Heparin Sodium (Porcine) (Heparin (5000 Units/1ml)) 5,000 unit Q12 SC Last administered on 01/14/19 08:18; Admin Dose 5,000 UNIT; Start 01/12/19 at 09:00 Albuterol/ Ipratropium (Duoneb) 3 ml Q2H RESP THERAPY PRN HHN SHORTNESS OF BREATH; Start 01/12/19 at 07:00 Ceftriaxone Sodium 50 ml @ 100 mls/hr Q24H IVPB Last administered on 01/14/19 12:50; Admin Dose 100 MLS/HR; Start 01/12/19 at 13:30 Amlodipine Besylate (Norvasc) 5 mg DAILY PO Last administered on 01/14/19 08:18; Admin Dose 5 MG; Start 01/12/19 at 13:30 Acetaminophen/ Hydrocodone Bitart ([place] (5/325)) 1 tab Q4H PRN GTB MODERATE PAIN LEVEL 4-6 Last administered on 01/14/19 08:17; Admin Dose 1 TAB; Start 01/12/19 at 13:30 Nystatin (Nystatin Powder) 1 applic BID TOP Last administered on 01/14/19 08:18; Admin Dose 1 APPLIC; Start 01/12/19 at 21:00 Methylprednisolone Sodium Succinate (Solu-Medrol) 20 mg Q8 IV Last administered on 01/14/19 12:53; Admin Dose 20 MG; Start 01/13/19 at 22:00 TOPHER COLON MD Jan 14, 2019 14:08
[2019-01-14 15:35] VITALS: BP 162/87; PULSE 104; RESP 16
[2019-01-14 20:00] VITALS: BP 177/81; PULSE 108; RESP 18
[2019-01-15] VITALS (7 sets, daily range): BP systolic 127–165; BP diastolic 77–90; PULSE 86–132; RESP 16–24
[2019-01-15] MEDS: HYDROCODONE/APAP (5/325) TAB GTB PRN ×2 (01:54→21:28)
[2019-01-15] MEDS: DEXTROSE 5%-0.45% NACL 1,000 ML IV SCH ×2 (01:54→04:57)
[2019-01-15] MEDS: METHYLPREDNISOLONE 40 MG INJ IV SCH (09:04)
[2019-01-15] MEDS: AMLODIPINE 10 MG TAB PO SCH (09:05)
[2019-01-15] MEDS: NYSTATIN 30 GM POWDER BTL TOP SCH ×2 (09:05→21:43)
[2019-01-15] MEDS: FAMOTIDINE 20 MG INJ IV SCH ×2 (09:05→21:28)
[2019-01-15] MEDS: HEPARIN 5,000 UNIT/1 ML VIAL SC SCH ×2 (09:15→21:29)
[2019-01-15] MEDS: CEFTRIAXONE 1 GM/50 ML (PMX) 50 ML IVPB SCH (12:50)
--- NOTE | 2019-01-15 16:42 | PN ---
Date/Time of Note Date/Time of Note DATE: 01/15/19 TIME: 16:40 Assessment/Plan VTE Prophylaxis Risk score (from Ns)>0 risk: 5 SCD applied (from Ns): Yes Pharmacological prophylaxis: heparin Lines/Catheters IV Catheter Type (from Nrs): Peripheral IV Urinary Cath still in place: No Assessment/Plan Assessment/Plan 1. COPD exacerbation, neb, rocephin, switch to prednisone. 2. Respiratory failure - was on O2, will trial on room air. 3. Acute on chronic encephalopathy, COPD related, improved 4. Alzheimer's dementia: Supportive care 5. Hyponatremia, dehydration, resolved 6. HTN, increase norvasc 7. Tobacco use, 4-5 cig per day, advise to quit 8. DVT prophylaxis: heparin Result Diagram: 01/14/19 0551 01/14/19 0551 Subjective 24 Hr Interval Summary Free Text/Dictation Patient doing well. Breathing comfortably. Exam/Review of Systems Exam Vitals Vital Signs Date Temp Pulse Resp B/P (MAP) Pulse Ox O2 O2 Flow FiO2 Time Delivery Rate 01/15/19 98.2 88 24 149/88 94 Nasal 15:10 (108) Cannula 01/15/19 2.0 08:07 Intake and Output 01/14/19 01/14/19 01/15/19 1515:00 23:00 07:00 IntakeIntake Total 240 ml 380 ml 1600 ml BalanceBalance 240 ml 380 ml 1600 ml Exam Constitutional: alert, oriented, well developed Head: normocephalic, atraumatic Eyes: nl conjunctiva, EOMI, nl lids, PERRL ENMT: nl external ears & nose, nl lips & teeth, nl nasal mucosa & septum, mucosa pink and moist Neck: supple, non-tender Respiratory: diminished breath sounds, no wheezing. Cardiovascular: regular rate and rhythm, nl pulses; No bruits, No diastolic murmur, No edema, No gallop, No irregular rhythm, No jugular venous distention (JVD), No murmurs/extra sounds, No rub, No systolic murmur, No S3, No S4, No other Gastrointestinal: soft, nl liver, spleen, non-tender Musculoskeletal: nl extremities to inspection Extremities: normal pulses; No calf tenderness, No cyanosis, No clubbing, No edema, No pitting pedal edema, No palpable cord, No tenderness, No other Medications Medication Current Medications IV Flush (NS 3 ml) 3 ml PER PROTOCOL IV ; Start 01/12/19 at 07:00 Ondansetron HCl (Zofran Inj) 4 mg Q6H PRN IV NAUSEA/VOMITING; Start 01/12/19 at 07:00 Acetaminophen (Tylenol Supp) 650 mg Q6H PRN [place] .PAIN 1-3 OR TEMP; Start 01/12/19 at 07:00 Famotidine (Pepcid Iv) 20 mg Q12 IV Last administered on 01/15/19 09:05; Admin Dose 20 MG; Start 01/12/19 at 09:00 Heparin Sodium (Porcine) (Heparin (5000 Units/1ml)) 5,000 unit Q12 SC Last administered on 01/15/19 09:15; Admin Dose 5,000 UNIT; Start 01/12/19 at 09:00 Albuterol/ Ipratropium (Duoneb) 3 ml Q2H RESP THERAPY PRN HHN SHORTNESS OF BREATH; Start 01/12/19 at 07:00 Ceftriaxone Sodium 50 ml @ 100 mls/hr Q24H IVPB Last administered on 01/15/19 12:50; Admin Dose 100 MLS/HR; Start 01/12/19 at 13:30 Acetaminophen/ Hydrocodone Bitart ([place] (5/325)) 1 tab Q4H PRN GTB MODERATE PAIN LEVEL 4-6 Last administered on 01/15/19 01:54; Admin Dose 1 TAB; Start 01/12/19 at 13:30 Nystatin (Nystatin Powder) 1 applic BID TOP Last administered on 01/15/19 09:05; Admin Dose 1 APPLIC; Start 01/12/19 at 21:00 Amlodipine Besylate (Norvasc) 10 mg DAILY PO Last administered on 01/15/19 09:05; Admin Dose 10 MG; Start 01/15/19 at 09:00 Methylprednisolone Sodium Succinate (Solu-Medrol) 20 mg Q12 IV Last administered on 01/15/19 09:04; Admin Dose 20 MG; Start 01/14/19 at 22:00 DAYDAY ARCHULETA MD Jan 15, 2019 16:42
[2019-01-15] MEDS: ALBUTEROL/IPRATROPIUM (NEB) 3 ML AMP HHN PRN (22:05)
[2019-01-16] MEDS: ALBUTEROL/IPRATROPIUM (NEB) 3 ML AMP HHN PRN (00:13)
[2019-01-16] MEDS ORDERED: METHYLPREDNISOLONE 125 MG INJ IV ONE (01:00)
[2019-01-16 03:39] VITALS: BP 165/79; PULSE 103; RESP 20
[2019-01-16 07:26] VITALS: BP 154/79; PULSE 110; RESP 18
[2019-01-16] MEDS: AMLODIPINE 10 MG TAB PO SCH (08:54)
[2019-01-16] MEDS: FAMOTIDINE 20 MG INJ IV SCH (08:54)
[2019-01-16] MEDS: NYSTATIN 30 GM POWDER BTL TOP SCH (08:55)
[2019-01-16] MEDS ORDERED: predniSONE 20 MG TAB PO SCH (09:00)
[2019-01-16] MEDS: HEPARIN 5,000 UNIT/1 ML VIAL SC SCH (09:03)
[2019-01-16 11:15] VITALS: BP 167/91; PULSE 115; RESP 18
[2019-01-16] MEDS ORDERED: METOPROLOL 50 MG TAB PO SCH (12:00)
[2019-01-16] MEDS: CEFTRIAXONE 1 GM/50 ML (PMX) 50 ML IVPB SCH (12:30)
--- NOTE | 2019-01-16 15:37 | DS ---
Date/Time of Note Date/Time of Note DATE: 01/16/19 TIME: 15:30 Discharge Summary Admission/Discharge Info Admit Date/Time Jan 12, 2019 at 05:37 Discharge Date/Time Jan 16, 2019 Discharge Diagnosis COPD exacerbation Patient Condition: Good Hx of Present Illness Patient is a 63-year-old woman with a history of COPD, Alzheimer's disease, dementia, depression, hyponatremia, idiopathic neuropathy and restless leg syndrome who was brought to the ER for altered mentation. Patient does have a history of dementia and seems like this is acute on chronic. Patient is oriented to location and year. She did not know why she was brought to the hospital however. She said that she usually uses a walker to ambulate. Currently, she does not really have any complain except back pain due to lying on her back for long time. When presented to the ER, she was hypoxic with oxygen saturation of 88%. Head CT without acute findings. Sodium 131, initial lactic acid 2.6. Chest x-ray and UA nondiagnostic. Hospital Course She was admitted to telemetry and started on high dose IV steroids. Wheezing res olved, steroids were weaned down to prednisone 40mg which will be continued for 5 more days. She is clear to return to her SNF. Home Meds Reported Medications Albuterol Sulfate* (Ventolin HFA*) 18 Gm Hfa.aer.ad, 2 PUFF INHALATION Q4H, #1 INHALER 01/12/19 Trazodone Hcl* (Trazodone Hcl*) 150 Mg Tablet, 150 MG PO QHS, #30 TAB 01/12/19 Budesonide-Formoterol Fumarate* (Symbicort*) 80-4.5 Inha, 2 PUFFS INHALATION BID, #1 EACH 01/12/19 Metoprolol Tartrate* (Lopressor*) 50 Mg Tab, 50 MG PO BID, #60 TAB 01/12/19 Memantine* (Namenda*) 10 Mg Tablet, 10 MG PO DAILY, #30 TAB 01/12/19 Loratadine* (Loratadine*) 10 Mg Tablet, 10 MG PO DAILY, #30 TAB 01/12/19 Hydrochlorothiazide* (Hydrochlorothiazide*) 12.5 Mg Tablet, 12.5 MG PO DAILY, #30 TAB 01/12/19 Gabapentin* (Gabapentin*) 100 Mg Capsule, 100 MG PO TID, #90 CAP 01/12/19 Folic Acid* (Folic Acid*) 1 Mg Tablet, 1 MG PO DAILY, TAB 01/12/19 Famotidine* (Famotidine*) 20 Mg Tablet, 20 MG PO QAM for GERD, #30 TAB 01/12/19 Mineral Oil (Fleet Mineral Oil Enema) 133 Ml Enema, 133 ML RC, ENEMA 01/12/19 Bisacodyl (Dulcolax) 10 Mg Supp.rect, 10 MG RC PRN for CONSTIPATION, SUPP.RECT 01/12/19 Magnesium Hydroxide* (Milk Of Magnesia*) 400 Mg/5 Ml Oral.susp, 30 ML PO DAILY PRN for CONSTIPATION, ML 01/12/19 Alendronate Sodium* (Fosamax*) 70 Mg Tablet, 70 MG PO Q7D for QSATURDAY, #4 TAB 01/12/19 Primary Care Provider Not On Staff Doctor Time spent on discharge: > 30 minutes DAYDAY ARCHULETA MD Jan 16, 2019 15:37
[2019-01-16] MEDS ORDERED: LABETALOL HCL 20MG INJ IV ONE ×2 (15:45→16:00)
== END 2019-01-16 16:32 | DRG 190 ==
LOC: E/R 03:24 → TEL 05:37
PROVIDERS: ADMIT Internal Medicine; ATTEND Internal Medicine
DX: J44.1 Chronic obstructive pulmonary disease with (acute) exacerbation (principal); J96.91 Respiratory failure, unspecified with hypoxia; E87.1 Hypo-osmolality and hyponatremia; G93.49 Other encephalopathy; G30.9 Alzheimer's disease, unspecified; F02.80 Dementia in other diseases classified elsewhere, unspecified severity, without behavioral disturbance, psychotic disturbance, mood disturbance, and anxiety; I10 Essential (primary) hypertension; G60.9 Hereditary and idiopathic neuropathy, unspecified; G25.81 Restless legs syndrome; Z72.0 Tobacco use
CPT/HCPCS: 36415; 36600; 70450; 70551; 71045; 80048; 80053; 80061; 80307; 81003; 82803; 83036; 83605; 83735; 84300; 84443; 84484; 85025; 85610; 85730; 87081; 87086; 92526; 92610; 93005; 94640; 94664; 96365; 96368; 97162; 97530; J0692; J0696; J1644; J2920; J2930; J3370; J7030; J7040; J7042; J7512